=== PATIENT | female | born 1995 | race Caucasian/White ===

== ENCOUNTER 2017-12-04 19:39 | Emergency (ER) | payer BC ==
[2017-12-04] MEDS ORDERED: Bacitracin Zinc 1 Packet ONE ×2 (20:21→20:27)
== END 2017-12-04 20:30 | disposition home or self-care (01) ==
LOC: SCSER 19:39
DX: T22.20XA Burn of second degree of shoulder and upper limb, except wrist and hand, unspecified site, initial encounter (principal); X17.XXXA Contact with hot engines, machinery and tools, initial encounter
CPT/HCPCS: 16020